=== PATIENT | male | born 1970 | race Caucasian/White ===

== ENCOUNTER 2025-07-14 16:39 | Emergency (ER) | payer OTHER, MEDICAID ==
[~2025-07-14] VITALS: Ht 175.3 cm; Wt 98.6 kg
[2025-07-14 18:22] VITALS: BP 121/80
== END 2025-07-14 18:15 | disposition home or self-care (01) ==
LOC: ED 16:39
DX: M25.532 Pain in left wrist (principal); I10 Essential (primary) hypertension; W18.30XA Fall on same level, unspecified, initial encounter
CPT/HCPCS: 73110; 99283